=== PATIENT | male | born 1970 | race Two or more races ===

== ENCOUNTER 2018-07-21 11:35 | Emergency (ER) | payer OTHER ==
[2018-07-21 11:46] VITALS: BP 246/145
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
[2018-07-21] MEDS ORDERED: traMADol 50 MG TABLET PO STA (13:39)
--- NOTE | 2018-07-21 13:42 | ED Physician Documentation ---
PD HPI Fall - Stated complaint Stated Complaint: FALL-L HIP/L SHOULDER INJ - Chief complaint Chief Complaint: General - History obtained from History obtained from: Patient - History of Present Illness Mechanism of injury: Tripped Fall distance: 5 to 10ft Where injury occurred: Home Timing - onset: How many days ago (2) Injury(ies) location: Back, Left Uppper Extremity, Right Lower Extremity Quality of pain: Pain Worsens with: Movement, Palpation - Additional information Additional information: The patient is a 48-year-old male who fell off his steps at home, about 6 feet, landing on his left side, impacting his shoulder and left hip. The incident occurred 2 days ago. He presents now because of persistent/increased pain in his left shoulder. He denies loss of consciousness, shortness of breath, or ab dominal pain. He has been ambulatory. Review of Systems Constitutional: denies: Fever Ears: denies: Tinnitus/ringing Nose: denies: Congestion Cardiac: denies: Chest pain / pressure Respiratory: denies: Dyspnea, Cough GI: denies: Abdominal Pain, Nausea, Vomiting : denies: Dysuria, Incontinent Skin: denies: Rash, Abrasion (s) Musculoskeletal: reports: Joint pain (Left shoulder and left hip.). denies: Neck pain Neurologic: denies: Focal weakness, Numbness, Headache, LOC PD PAST MEDICAL HISTORY - Past Medical History Neuro: None Endocrine/Autoimmune: None - Present Medications Home Medications: Ambulatory Orders Medication Instructions Recorded Confirmed traMADol [Ultram] 50 mg PO Q4-6H #20 tablet 07/21/18 - Allergies Allergies/Adverse Reactions: Allergies Allergy/AdvReac Type Severity Reaction Status Date / Time No Known Drug Allergies Allergy Verified 07/21/18 13:44 PD ED PE NORMAL - Vitals Vital signs reviewed: Yes (Initially hypertensive.) - General General: Alert and oriented X 3, Well developed/nourished, Other (Overweight.) - HEENT HEENT: Atraumatic, EOMI - Neck Neck: No bony TTP - Cardiac Cardiac: RRR - Respiratory Respiratory: No respiratory distress, Clear bilaterally, Other (No chest wall tenderness to palpation.) - Abdomen Abdomen: Soft, Non tender - Back Back: No CVA TTP, No spinal TTP - Derm Derm: No rash - Extremities Extremities: No deformity, Other (There is tenderness to palpation over the posterior aspect of the left shoulder. He has decreased elevation at the shoulder secondary to pain. There is no ecchymosis or abrasion detected. Distal neurovascular is intact. There is no tenderness to palpation over the trochanteric aspect of the left hip. There is mild tenderness at the left SI joint. He is able to ambulate with full weightbearing.) - Neuro Neuro: Alert and oriented X 3, No motor deficit, No sensory deficit Results - Vitals Vitals: Oxygen O2 Source Room air - Rads (name of study) Left shoulder Radiology: Prelim report reviewed, EMP read contemporaneously, See rad report (No fracture or bony lesion. DJD of acromioclavicular joint.) PD MEDICAL DECISION MAKING - ED course Complexity details: reviewed results, re-evaluated patient, considered differential, d/w patient, d/w family ED course: The patient's presentation is most consistent with contusion to the left shoulder and hip secondary to fall. There is possibility of rotator cuff injury to the left shoulder, although that is not certain at this time. There is no evidence of acute bony injury on radiographic imaging. Departure - Departure Disposition: 01 Home, Self Care Clinical Impression: Fall Qualifiers: Encounter type: initial encounter Qualified Code(s): W19.XXXA - Unspecified fall, initial encounter Shoulder contusion Qualifiers: Encounter type: initial encounter Laterality: left Qualified Code(s): S40.012A - Contusion of left shoulder, initial encounter Contusion of hip, left Qualifiers: Encounter type: initial encounter Qualified Code(s): S70.02XA - Contusion of left hip, initial encounter Condition: Stable Instructions: ED Contusion Hip, ED Contusion Shoulder Follow-Up: [facility] [Provider Group] Prescriptions: traMADol [Ultram] 50 mg PO Q4-6H #20 tablet Comments: Apply ice pack to the sore areas intermittently for the next 2 or 3 days. You can take ibuprofen, up to 800 mg 3 times daily for its anti-inflammatory effect. You can use tramadol as prescribed if needed for pain. Let pain be your guide to activity level. Follow-up with your primary physician within 2 weeks. Return to the emergency department if you develop markedly increasing pain, or otherwise worsening symptoms. Discharge Date/Time: 07/21/18 13:49
== END 2018-07-21 13:49 | disposition home or self-care (01) ==
LOC: ED 11:35
DX: S40.012A Contusion of left shoulder, initial encounter (principal); S70.02XA Contusion of left hip, initial encounter; W10.9XXA Fall (on) (from) unspecified stairs and steps, initial encounter; Y92.009 Unspecified place in unspecified non-institutional (private) residence as the place of occurrence of the external cause
CPT/HCPCS: 73030; 99281; 99283; A9270

== ENCOUNTER 2019-07-18 17:28 | Outpatient (CLI) | payer OTHER | END 2019-07-18 17:29 | disposition EMS.NT | LOC: EMS 17:28 | PROVIDERS: ATTEND Surgery | DX: M25.512 Pain in left shoulder (principal); V53.5XXA Driver of pick-up truck or van injured in collision with car, pick-up truck or van in traffic accident, initial encounter; Y92.413 State road as the place of occurrence of the external cause ==

== ENCOUNTER 2019-07-18 19:49 | Emergency (ER) | payer OTHER ==
[2019-07-18 20:03] VITALS: BP 205/131
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
[2019-07-18] MEDS ORDERED: KETOROLAC 60 MG/2 ML VIAL IM STA (21:21)
[2019-07-18] MEDS ORDERED: METOPROLOL SUCCINATE 25 MG TABLET PO STA (21:24)
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
== END 2019-07-18 22:57 | disposition home or self-care (01) ==
LOC: ED 19:49
DX: S16.1XXA Strain of muscle, fascia and tendon at neck level, initial encounter (principal); S53.402A Unspecified sprain of left elbow, initial encounter; S20.212A Contusion of left front wall of thorax, initial encounter; S40.012A Contusion of left shoulder, initial encounter; V53.5XXA Driver of pick-up truck or van injured in collision with car, pick-up truck or van in traffic accident, initial encounter; Y92.411 Interstate highway as the place of occurrence of the external cause; I10 Essential (primary) hypertension; T46.5X6A Underdosing of other antihypertensive drugs, initial encounter; Z91.128 Patient's intentional underdosing of medication regimen for other reason; M47.812 Spondylosis without myelopathy or radiculopathy, cervical region
CPT/HCPCS: 71101; 72125; 73030; 73080; 73100; 96372; 99284; A9270